=== PATIENT | female | born 1985 | race Caucasian/White ===

== ENCOUNTER → 2018-03-22 | Outpatient (CLI) | payer OTHER | LOC: MC.RAD 14:15 | DX: N63.20 Unspecified lump in the left breast, unspecified quadrant (principal) ==

== ENCOUNTER 2018-04-08 18:35 | Emergency (ER) | payer OTHER ==
[~2018-04-08] VITALS: Ht 172.7 cm; Wt 65.9 kg
[2018-04-08 18:38] VITALS: BP 127/64; TEMP 98.6
[2018-04-08] MEDS ORDERED: PREDNISONE10 MG PO (19:18)
[2018-04-08 19:21] VITALS: PULSE 99
== END 2018-04-08 20:14 | disposition home or self-care (01) ==
LOC: COL.ER 18:35
DX: R05 Cough (principal); F17.210 Nicotine dependence, cigarettes, uncomplicated; Z88.0 Allergy status to penicillin
CPT/HCPCS: J7512

== ENCOUNTER 2018-04-24 17:47 | Emergency (ER) | payer OTHER ==
[~2018-04-24 17:47] MED LIST: PREDNISONE10 MG PO
[2018-04-24 17:58] VITALS: TEMP 98.5
[2018-04-24 18:26] LABS: BASO % 0.3 % (0.0-2.0); EOS # 0.1 (0.0-0.7); GRAN # 1.7 (1.4-6.5); GRAN % 43.7 % (42.2-75.2); HEMOGLOBIN 11.5 g/dl (12.5-16.0); LYMPH # 1.7 (1.2-3.4); MEAN CELL VOLUME 83 fl (80.0-100.0); MEAN CORPUSCULAR HEMOGLOBIN 28 pg (27.0-31.0); MEAN CORPUSCULAR HGB CONC 34 g/dl (33.0-37.0); MEAN PLATELET VOLUME 9.7 fl (7.4-10.4); MONO # 0.4 (0.1-0.6); MONO % 10.7 % (1.7-9.3); PLATELET COUNT 220 K/mm3 (130-400); RED BLOOD COUNT 4.13 M/mm3 (4.10-5.30); REDCELL DISTRIBUTION WIDTH-CV 13.4 % (11.5-14.5)
[2018-04-24 18:27] LABS: HEMATOCRIT 34.3 % (37.0-47.0)
[2018-04-24] MEDS ORDERED: PHENERGAN 25 TA25 MG PO (19:03)
[2018-04-24 19:13] VITALS: BP 127/82; PULSE 83
== END 2018-04-24 19:15 | disposition home or self-care (01) ==
LOC: COL.ER 17:47
PROVIDERS: Emergency Medicine
DX: O26.899 Other specified pregnancy related conditions, unspecified trimester (principal); R10.2 Pelvic and perineal pain; O21.9 Vomiting of pregnancy, unspecified; Z88.0 Allergy status to penicillin; Z3A.00 Weeks of gestation of pregnancy not specified

== ENCOUNTER 2018-04-29 07:47 | Emergency (ER) | payer OTHER ==
[~2018-04-29] VITALS: Ht 172.7 cm; Wt 63.6 kg
[~2018-04-29 07:47] MED LIST changes: +PHENERGAN 25 TA25 MG PO
[2018-04-29 07:50] VITALS: BP 122/70; PULSE 100; TEMP 97.6
[2018-04-29 08:07] LABS: BASO % 0.3 % (0.0-2.0); EOS # 0.1 (0.0-0.7); EOS % 1.9 % (0-4.0); GRAN # 1.7 (1.4-6.5); HEMOGLOBIN 12.2 g/dl (12.5-16.0); LYMPH # 1.6 (1.2-3.4); LYMPH % 43.2 % (20.0-51.0); MEAN CELL VOLUME 84 fl (80.0-100.0); MEAN CORPUSCULAR HEMOGLOBIN 28 pg (27.0-31.0); MEAN CORPUSCULAR HGB CONC 33 g/dl (33.0-37.0); MEAN PLATELET VOLUME 9.7 fl (7.4-10.4); MONO # 0.4 (0.1-0.6); MONO % 10.1 % (1.7-9.3); PLATELET COUNT 212 K/mm3 (130-400); RED BLOOD COUNT 4.39 M/mm3 (4.10-5.30); REDCELL DISTRIBUTION WIDTH-CV 13.5 % (11.5-14.5)
[2018-04-29 08:12] LABS: COLLECTION METHOD CLEAN CATCH
[2018-04-29 08:19] LABS: MUCOUS Present /lpf; PH 5 (5-8); URINE APPEARANCE Hazy; URINE BACTERIA Rare /hpf; URINE BILIRUBIN Negative (NEGATIVE); URINE BLOOD Negative (NEGATIVE); URINE COLOR Yellow; URINE GLUCOSE Negative (NEGATIVE); URINE KETONE Negative (NEGATIVE); URINE LEUKOCYTE ESTERASE Negative (NEGATIVE); URINE NITRATE Negative (NEGATIVE); URINE PROTEIN(semi-quant) Negative (NEGATIVE); URINE RBC 0-2 /hpf; URINE UROBILINOGEN Negative (NEGATIVE)
== END 2018-04-29 09:10 | disposition home or self-care (01) ==
LOC: COL.ER 07:47
PROVIDERS: Emergency Medicine; Nurse Practitioner
DX: O20.0 Threatened abortion (principal); F17.210 Nicotine dependence, cigarettes, uncomplicated; Z3A.01 Less than 8 weeks gestation of pregnancy; Z88.0 Allergy status to penicillin; Z98.890 Other specified postprocedural states

== ENCOUNTER 2018-05-03 22:23 | Emergency (ER) | payer OTHER ==
[2018-05-04 00:26] LABS: BASO % 0.3 % (0.0-2.0); EOS # 0.1 (0.0-0.7); EOS % 1.1 % (0-4.0); GRAN # 3.8 (1.4-6.5); GRAN % 54.2 % (42.2-75.2); HEMATOCRIT 37.3 % (37.0-47.0); HEMOGLOBIN 12.4 g/dl (12.5-16.0); LYMPH # 2.5 (1.2-3.4); LYMPH % 35.9 % (20.0-51.0); MEAN CELL VOLUME 85 fl (80.0-100.0); MEAN CORPUSCULAR HEMOGLOBIN 28 pg (27.0-31.0); MEAN CORPUSCULAR HGB CONC 33 g/dl (33.0-37.0); MONO # 0.6 (0.1-0.6); MONO % 8.4 % (1.7-9.3); PLATELET COUNT 224 K/mm3 (130-400); RED BLOOD COUNT 4.38 M/mm3 (4.10-5.30); REDCELL DISTRIBUTION WIDTH-CV 13.7 % (11.5-14.5)
[2018-05-04 00:35] LABS: ALBUMIN 4.4 gm/dL (3.5-5.0); BILIRUBIN,TOTAL 0.3 mg/dL (0.0-1.0); CALCIUM 9.4 mg/dL (8.4-10.2); CREATININE, serum 0.65 mg/dL (0.52-1.25); POTASSIUM 3.7 mmol/L (3.4-5.0); TOTAL PROTEIN 7.8 gm/dL (6.4-8.2)
[2018-05-04 03:39] LABS: COLLECTION METHOD CLEAN CATCH
[2018-05-04 03:48] LABS: MUCOUS Present /lpf; PH 5 (5-8); SQUAMOUS EPITHELIAL 0-2 /hpf; URINE APPEARANCE Clear; URINE BACTERIA None Seen /hpf; URINE BILIRUBIN Negative (NEGATIVE); URINE BLOOD 3+ (NEGATIVE); URINE COLOR Yellow; URINE GLUCOSE Negative (NEGATIVE); URINE KETONE 2+ (NEGATIVE); URINE LEUKOCYTE ESTERASE Negative (NEGATIVE); URINE NITRATE Negative (NEGATIVE); URINE PROTEIN(semi-quant) Negative (NEGATIVE); URINE RBC 0-2 /hpf; URINE UROBILINOGEN Negative (NEGATIVE)
[2018-05-04 05:10] VITALS: BP 108/66; PULSE 65; TEMP 97.9
== END 2018-05-04 05:11 | disposition home or self-care (01) ==
LOC: COL.ER 22:23
PROVIDERS: Emergency Medicine
DX: O20.0 Threatened abortion (principal); O99.331 Smoking (tobacco) complicating pregnancy, first trimester; Z3A.01 Less than 8 weeks gestation of pregnancy; F17.210 Nicotine dependence, cigarettes, uncomplicated
CPT/HCPCS: J7030

== ENCOUNTER 2018-07-05 12:13 | Emergency (ER) | payer OTHER ==
[~2018-07-05] VITALS: Ht 172.7 cm; Wt 60.9 kg
[2018-07-05 12:19] VITALS: BP 106/60; PULSE 83; TEMP 97.7
== END 2018-07-05 14:42 | disposition left against medical advice (07) ==
LOC: COL.ER 12:13
DX: J32.9 Chronic sinusitis, unspecified (principal)

== ENCOUNTER 2018-07-05 23:33 | Emergency (ER) | payer OTHER ==
[~2018-07-05] VITALS: Ht 172.7 cm; Wt 61.4 kg
[2018-07-05 23:38] VITALS: BP 113/68; TEMP 97
[2018-07-06 00:25] VITALS: PULSE 87
== END 2018-07-06 00:25 | disposition home or self-care (01) ==
LOC: COL.ER 23:33
DX: O26.892 Other specified pregnancy related conditions, second trimester (principal); O99.512 Diseases of the respiratory system complicating pregnancy, second trimester; B34.9 Viral infection, unspecified; J32.9 Chronic sinusitis, unspecified; J06.9 Acute upper respiratory infection, unspecified; Z3A.15 15 weeks gestation of pregnancy

== ENCOUNTER 2018-07-08 20:29 | Emergency (ER) | payer OTHER ==
[~2018-07-08] VITALS: Ht 172.7 cm; Wt 59.1 kg
[2018-07-08 20:37] VITALS: BP 118/71; TEMP 98.4
[2018-07-08 21:37] VITALS: PULSE 80
== END 2018-07-08 21:38 | disposition home or self-care (01) ==
LOC: COL.ER 20:29
DX: O99.89 Other specified diseases and conditions complicating pregnancy, childbirth and the puerperium (principal); M25.531 Pain in right wrist; Z3A.15 15 weeks gestation of pregnancy

== ENCOUNTER 2018-08-08 20:54 | Emergency (ER) | payer OTHER ==
[~2018-08-08] VITALS: Ht 172.7 cm; Wt 62.7 kg
[2018-08-08 20:58] VITALS: BP 117/60; TEMP 98.5
[2018-08-08] MEDS ORDERED: ZOLOFT 25MG25 MG PO (21:10)
[2018-08-08 21:19] LABS: COLLECTION METHOD CLEAN CATCH
[2018-08-08 21:24] LABS: PH 8 (5-8); SQUAMOUS EPITHELIAL 0-2 /hpf; URINE APPEARANCE Clear; URINE BACTERIA None Seen /hpf; URINE BILIRUBIN Negative (NEGATIVE); URINE BLOOD Negative (NEGATIVE); URINE COLOR Colorless; URINE GLUCOSE Negative (NEGATIVE); URINE KETONE Negative (NEGATIVE); URINE LEUKOCYTE ESTERASE Negative (NEGATIVE); URINE NITRATE Negative (NEGATIVE); URINE PROTEIN(semi-quant) Negative (NEGATIVE); URINE RBC None Seen /hpf; URINE UROBILINOGEN Negative (NEGATIVE)
[2018-08-08 21:40] VITALS: PULSE 72
== END 2018-08-08 21:40 | disposition home or self-care (01) ==
LOC: COL.ER 20:54
PROVIDERS: Emergency Medicine
DX: O99.342 Other mental disorders complicating pregnancy, second trimester (principal); O26.892 Other specified pregnancy related conditions, second trimester; R10.2 Pelvic and perineal pain; F32.9 Major depressive disorder, single episode, unspecified; F41.9 Anxiety disorder, unspecified; Z3A.19 19 weeks gestation of pregnancy

== ENCOUNTER 2018-09-12 00:02 | Emergency (ER) | payer OTHER ==
[~2018-09-12] VITALS: Ht 172.7 cm; Wt 68.6 kg
[~2018-09-12 00:02] MED LIST changes: +ZOLOFT 25MG25 MG PO
[2018-09-12 00:04] VITALS: TEMP 97.6
[2018-09-12 00:22] LABS: COLLECTION METHOD CLEAN CATCH
[2018-09-12 00:29] LABS: PH 6 (5-8); SQUAMOUS EPITHELIAL 0-2 /hpf; URINE APPEARANCE Clear; URINE BACTERIA None Seen /hpf; URINE BILIRUBIN Negative (NEGATIVE); URINE BLOOD Negative (NEGATIVE); URINE COLOR Straw; URINE GLUCOSE Negative (NEGATIVE); URINE KETONE Negative (NEGATIVE); URINE LEUKOCYTE ESTERASE Negative (NEGATIVE); URINE NITRATE Negative (NEGATIVE); URINE PROTEIN(semi-quant) Negative (NEGATIVE); URINE RBC None Seen /hpf; URINE UROBILINOGEN Negative (NEGATIVE)
--- NOTE | 2018-09-12 00:40 | NUR ---
Pt in ED for reports of uncontrollable nausea for 2 days. Pt 24.4 wks with pt reports "normal care". Pt denies any leaking of fluid or vaginal bleeding at this time. Pt also denies contractions and reports normal movement. EFM and toco monitors applied. Initially, difficult to trace. Audible and palpable movement. See EFM monitoring for details. No contractions noted on toco monitor. Information and EFM strip given to ED provider. Encouraged follow up with OB provider sooner than regular scheduled appointment.
[2018-09-12 01:56] LABS: BASO % 0.2 % (0.0-2.0); EOS # 0.1 (0.0-0.7); EOS % 0.8 % (0-4.0); GRAN # 3.1 (1.4-6.5); GRAN % 52.1 % (42.2-75.2); LYMPH # 2.3 (1.2-3.4); LYMPH % 37.5 % (20.0-51.0); MEAN CELL VOLUME 91 fl (80.0-100.0); MEAN CORPUSCULAR HGB CONC 34 g/dl (33.0-37.0); MEAN PLATELET VOLUME 9.5 fl (7.4-10.4); MONO # 0.6 (0.1-0.6); MONO % 9.1 % (1.7-9.3); PLATELET COUNT 212 K/mm3 (130-400); RED BLOOD COUNT 3.11 M/mm3 (4.10-5.30); REDCELL DISTRIBUTION WIDTH-CV 12.3 % (11.5-14.5)
[2018-09-12 02:03] LABS: HEMATOCRIT 28.3 % (37.0-47.0); HEMOGLOBIN 9.7 g/dl (12.5-16.0); MEAN CORPUSCULAR HEMOGLOBIN 31 pg (27.0-31.0)
[2018-09-12 02:13] LABS: ALBUMIN 3.4 gm/dL (3.5-5.0); BILIRUBIN,TOTAL 0.1 mg/dL (0.0-1.0); CREATININE, serum 0.48 mg/dL (0.52-1.25); POTASSIUM 3.8 mmol/L (3.4-5.0); TOTAL PROTEIN 6.3 gm/dL (6.4-8.2)
[2018-09-12] MEDS ORDERED: PHENERGAN 25 TA25 MG PO (02:28)
[2018-09-12] MEDS ORDERED: FLAGYL500 MG PO (02:28)
[2018-09-12 02:39] VITALS: BP 114/68; PULSE 66
== END 2018-09-12 02:41 | disposition home or self-care (01) ==
LOC: COL.ER 00:02
PROVIDERS: Emergency Medicine
DX: O23.592 Infection of other part of genital tract in pregnancy, second trimester (principal); B96.89 Other specified bacterial agents as the cause of diseases classified elsewhere; O99.012 Anemia complicating pregnancy, second trimester; Z87.891 Personal history of nicotine dependence; Z3A.24 24 weeks gestation of pregnancy

== ENCOUNTER 2018-09-24 21:30 | Emergency (ER) | payer OTHER ==
[~2018-09-24] VITALS: Ht 172.7 cm; Wt 70.9 kg
[~2018-09-24 21:30] MED LIST changes: +FLAGYL500 MG PO
[2018-09-24 21:36] VITALS: BP 124/77; TEMP 97.8
--- NOTE | 2018-09-24 22:02 | NUR ---
Pt seen in the ED for complaints with ingrown toenail. Pt 26.2 wks. Due 12/29/18. Pt denies any leaking of fluid or vaginal bleeding at this time and reports normal movement. She reports occasional "abdominal cramping" when working or walking all day but "cramping" stops with rest and hydration. EFM and toco monitors placed. Audible movement. No ctx per toco or palpation. Encouraged rest, hydration and regular scheduled appt with OB. See FHR charting for details.
[2018-09-24] MEDS ORDERED: CEPHALEXIN500 M1 PO (22:29)
[2018-09-24 22:42] VITALS: PULSE 93
== END 2018-09-24 22:42 | disposition home or self-care (01) ==
LOC: COL.ER 21:30
DX: O99.712 Diseases of the skin and subcutaneous tissue complicating pregnancy, second trimester (principal); L03.031 Cellulitis of right toe; Z87.891 Personal history of nicotine dependence; Z88.0 Allergy status to penicillin; Z3A.26 26 weeks gestation of pregnancy

== ENCOUNTER 2018-09-24 23:29 | Emergency (ER) | payer OTHER ==
[~2018-09-24] VITALS: Ht 172.7 cm; Wt 70.9 kg
[~2018-09-24 23:29] MED LIST changes: +CEPHALEXIN500 M1 PO
[2018-09-24 23:34] VITALS: BP 116/66
[2018-09-25 00:08] VITALS: PULSE 86
== END 2018-09-25 00:14 | disposition home or self-care (01) ==
LOC: COL.ER 23:29
DX: L60.0 Ingrowing nail (principal)

== ENCOUNTER 2018-10-06 15:47 | Emergency (ER) | payer OTHER ==
[~2018-10-06] VITALS: Ht 172.7 cm; Wt 71.8 kg
[2018-10-06 15:56] VITALS: BP 110/63; PULSE 87; TEMP 97.5
--- NOTE | 2018-10-06 16:50 | NUR ---
Patient denies any problems related to . FHR 145bpm baseline and moderate variability noted.
== END 2018-10-06 17:35 | disposition home or self-care (01) ==
LOC: COL.ER 15:47
DX: O98.513 Other viral diseases complicating pregnancy, third trimester (principal); Z3A.28 28 weeks gestation of pregnancy; Z88.0 Allergy status to penicillin; Z88.1 Allergy status to other antibiotic agents

== ENCOUNTER 2018-10-09 14:20 | Emergency (ER) | payer OTHER ==
[~2018-10-09] VITALS: Ht 172.7 cm; Wt 71.8 kg
[2018-10-09 14:33] VITALS: TEMP 98.1
--- NOTE | 2018-10-09 19:45 | NUR ---
1930- OB patient seen in ED. EFM and TOCO on and tracing. Patient denies decreased movement, leaking of fluid, bleeding or spotting, or contractions. 1949- FHR reassurring. Updated ED RN.
[2018-10-09 20:30] VITALS: BP 126/75; PULSE 79
== END 2018-10-09 20:30 | disposition home or self-care (01) ==
LOC: COL.ER 14:20
DX: O26.892 Other specified pregnancy related conditions, second trimester (principal); O99.342 Other mental disorders complicating pregnancy, second trimester; R20.2 Paresthesia of skin; F41.9 Anxiety disorder, unspecified; F32.9 Major depressive disorder, single episode, unspecified; G43.909 Migraine, unspecified, not intractable, without status migrainosus; Z3A.28 28 weeks gestation of pregnancy
CPT/HCPCS: J1200; J7030

== ENCOUNTER 2018-10-18 22:29 | Outpatient (CLI) | payer OTHER ==
[~2018-10-18] VITALS: Ht 172.7 cm; Wt 71.8 kg
--- NOTE | 2018-10-18 22:45 | NUR ---
G1L0. 29-5. Ambulatory to LDR 5 with significant other. Clean gown on. Pt states she has had consistent abdominal cramping since 2030 tonight while she was at work. Pt reports going home but cramping did not go away. Pt denies vaginal bleeding, LOF or recent sexual intercourse. Pt states she had a BV infection but she was unable to finish her flagyl perscription due to the ER telling her to finish her keflex perscription first due to an ingrown toenail. Pt states she has not taken tylenol since earlier this morning at 0900. Reports good movement. SVE FT/50/-2. Plan of care explained and call light within reach. 2325: updated on pt's status. See physican notification. 2335: Plan of care explained to pt and questions answered. IV started and LR bolus infusing without difficulties. 0011: LR bolus completed and pt off monitors to changed 0025: Discharge instructions given to pt and signifcant other who verbalize their understanding. Pt ambulatory off unit and home with signifcant other.
[2018-10-18 22:55] VITALS: BP 118/70; PULSE 83; TEMP 97.4
[2018-10-18] MEDS ORDERED: PRENATAL MVI PO (22:57)
[2018-10-18] MEDS ORDERED: TYLENOL 325MG325 MG PO (22:58)
[2018-10-19 00:11] VITALS: BP 113/69; PULSE 68
== END 2018-10-19 00:25 | disposition home or self-care (01) ==
LOC: LDRO 22:29 → LDR 23:26 → LDRO 10-19 00:25
DX: O26.893 Other specified pregnancy related conditions, third trimester (principal); R25.2 Cramp and spasm; Z3A.29 29 weeks gestation of pregnancy
CPT/HCPCS: OP; J7120

== ENCOUNTER 2018-12-06 13:09 | Emergency (ER) | payer OTHER ==
[~2018-12-06 13:09] MED LIST changes: +PRENATAL MVI PO; +TYLENOL 325MG325 MG PO
[2018-12-06 13:17] VITALS: BP 120/78; TEMP 97.1
[2018-12-06 13:59] LABS: COLLECTION METHOD CLEAN CATCH
[2018-12-06 14:02] LABS: BASO % 0.4 % (0.0-2.0); EOS % 0.8 % (0-4.0); GRAN # 3.3 (1.4-6.5); GRAN % 62.6 % (42.2-75.2); LYMPH # 1.5 (1.2-3.4); LYMPH % 28.1 % (20.0-51.0); MEAN CELL VOLUME 83 fl (80.0-100.0); MEAN CORPUSCULAR HGB CONC 32 g/dl (33.0-37.0); MEAN PLATELET VOLUME 11.1 fl (7.4-10.4); MONO # 0.4 (0.1-0.6); MONO % 7.7 % (1.7-9.3); PLATELET COUNT 218 K/mm3 (130-400); RED BLOOD COUNT 3.54 M/mm3 (4.10-5.30); REDCELL DISTRIBUTION WIDTH-CV 13.2 % (11.5-14.5)
[2018-12-06 14:03] LABS: HEMATOCRIT 29.5 % (37.0-47.0); HEMOGLOBIN 9.4 g/dl (12.5-16.0); MEAN CORPUSCULAR HEMOGLOBIN 27 pg (27.0-31.0)
[2018-12-06 14:06] LABS: MUCOUS Present /lpf; PH 6 (5-8); URINE APPEARANCE Clear; URINE BACTERIA Rare /hpf; URINE BILIRUBIN Negative (NEGATIVE); URINE BLOOD Negative (NEGATIVE); URINE COLOR Yellow; URINE GLUCOSE Negative (NEGATIVE); URINE KETONE Negative (NEGATIVE); URINE LEUKOCYTE ESTERASE Negative (NEGATIVE); URINE NITRATE Negative (NEGATIVE); URINE PROTEIN(semi-quant) Negative (NEGATIVE); URINE RBC 0-2 /hpf; URINE UROBILINOGEN Negative (NEGATIVE)
[2018-12-06 14:12] LABS: ALANINE AMINOTRANSFERASE < 6 U/L (9-52); ALBUMIN 3.6 gm/dL (3.5-5.0); ALKALINE PHOSPHATASE 221 U/L (50-136); ANION GAP 9 mmol/L (7-16); AST,SGOT 27 U/L (15-37); BILIRUBIN,TOTAL 0.2 mg/dL (0.0-1.0); BLOOD UREA NITROGEN 9 mg/dL (7-17); CALCIUM 9.4 mg/dL (8.4-10.2); CARBON DIOXIDE 21 mmol/L (22-30); CHLORIDE 108 mmol/L (98-107); CREATININE, serum 0.64 (0.52-1.25); GLUCOSE 88 mg/dL (74-106); LIPASE 155 U/L (23-300); POTASSIUM 4.1 mmol/L (3.4-5.0); SODIUM 138 mmol/L (137-145)
[2018-12-06] MEDS ORDERED: PHENERGAN 25 TA25 MG PO (14:23)
[2018-12-06] MEDS ORDERED: MACROBID 1100 MG/CAP PO (14:25)
[2018-12-06 14:40] VITALS: PULSE 65
== END 2018-12-06 14:42 | disposition home or self-care (01) ==
LOC: COL.ER 13:09
PROVIDERS: Emergency Medicine
DX: O21.9 Vomiting of pregnancy, unspecified (principal); O26.893 Other specified pregnancy related conditions, third trimester; R82.71 Bacteriuria; Z3A.36 36 weeks gestation of pregnancy
CPT/HCPCS: J2405; J2550; J7030

== ENCOUNTER 2018-12-10 22:55 | Outpatient (CLI) | payer OTHER ==
[~2018-12-10] VITALS: Ht 172.7 cm; Wt 77.7 kg
[~2018-12-10 22:55] MED LIST changes: +MACROBID 1100 MG/CAP PO
--- NOTE | 2018-12-10 23:10 | NUR ---
Pt arrived on unit with complaints of contractions starting this evening. Pt reports some "pink spotting" while in the bathroom at work this evening. Pt denies any leaking of fluid and reports normal movement. EFM and toco monitors started. Vital signs WNL. SVE by this RN /2. Spoke with Dr. Galdamez. Reviewed pt's status with arrival, SVE and FHR tracing reviewed. Plan of care for labor assessment reviewed with pt.
[2018-12-10 23:17] VITALS: BP 128/77; PULSE 77; TEMP 97.9
--- NOTE | 2018-12-11 00:45 | NUR ---
SVE by this RN with no change. Orders for discharge home received. Discharge plan, precautions and follow up care discussed with pt and boyfriend at the bedside. Both verbalized an understanding, agree with the plan and state no questions or concerns at this time.
== END 2018-12-11 01:15 | disposition home or self-care (01) ==
LOC: LDRO 22:55
DX: O62.9 Abnormality of forces of labor, unspecified (principal); Z3A.37 37 weeks gestation of pregnancy

== ENCOUNTER 2018-12-11 19:27 | Outpatient (CLI) | payer OTHER ==
[~2018-12-11] VITALS: Ht 172.7 cm; Wt 77.3 kg
--- NOTE | 2018-12-11 19:35 | NUR ---
To unit via wheelchair for labor assessment. Oriented to room, monitor, plan of care. Pt reports contractions and a "blood clot out of my vagina" Pt reports "I was here last night for a labor check and I had some clots before I left.
--- NOTE | 2018-12-11 19:50 | NUR ---
SVE with brown 'old blood noted on glove', no red bleeding or loss of fluid.
[2018-12-11 19:54] VITALS: BP 117/78; PULSE 68; TEMP 98.8
[2018-12-11 21:00] VITALS: BP 126/77; PULSE 73
--- NOTE | 2018-12-11 21:00 | NUR ---
Pt reports contractions "the same". SVE with no changes noted. Reviewed findings, discussed [place] contractions vs early laber. Questions invited and answered.
== END 2018-12-11 21:05 | disposition home or self-care (01) ==
LOC: LDRO 19:27
DX: O62.9 Abnormality of forces of labor, unspecified (principal); O46.93 Antepartum hemorrhage, unspecified, third trimester; Z3A.37 37 weeks gestation of pregnancy

== ENCOUNTER 2018-12-15 17:22 | Emergency (ER) | payer OTHER ==
[~2018-12-15] VITALS: Ht 172.7 cm; Wt 77.3 kg
[2018-12-15 17:23] VITALS: TEMP 98
[2018-12-15 17:56] LABS: BASO % 0.3 % (0.0-2.0); EOS % 0.3 % (0-4.0); GRAN # 3.7 (1.4-6.5); GRAN % 63.6 % (42.2-75.2); LYMPH # 1.6 (1.2-3.4); LYMPH % 27.9 % (20.0-51.0); MEAN CELL VOLUME 83 fl (80.0-100.0); MEAN CORPUSCULAR HGB CONC 32 g/dl (33.0-37.0); MEAN PLATELET VOLUME 10.6 fl (7.4-10.4); MONO # 0.4 (0.1-0.6); MONO % 7.6 % (1.7-9.3); PLATELET COUNT 205 K/mm3 (130-400); RED BLOOD COUNT 3.47 M/mm3 (4.10-5.30); REDCELL DISTRIBUTION WIDTH-CV 13.5 % (11.5-14.5)
[2018-12-15 17:59] LABS: HEMATOCRIT 28.9 % (37.0-47.0); HEMOGLOBIN 9.2 g/dl (12.5-16.0); MEAN CORPUSCULAR HEMOGLOBIN 27 pg (27.0-31.0)
[2018-12-15 18:06] LABS: ALANINE AMINOTRANSFERASE < 6 U/L (9-52); ALBUMIN 3.5 gm/dL (3.5-5.0); ALKALINE PHOSPHATASE 217 U/L (50-136); ANION GAP 10 mmol/L (7-16); AST,SGOT 30 U/L (15-37); BILIRUBIN,TOTAL 0.3 mg/dL (0.0-1.0); BLOOD UREA NITROGEN 11 mg/dL (7-17); CARBON DIOXIDE 21 mmol/L (22-30); CHLORIDE 105 mmol/L (98-107); CREATININE, serum 0.76 (0.52-1.25); GLUCOSE 106 mg/dL (74-106); POTASSIUM 3.9 mmol/L (3.4-5.0); SODIUM 136 mmol/L (137-145); TOTAL PROTEIN 6.8 gm/dL (6.4-8.2)
[2018-12-15 18:30] LABS: TROPONIN-I < 0.012 ng/mL (0.000-0.035)
--- NOTE | 2018-12-15 18:45 | NUR ---
182- RN to beside in ED. EFM and TOCO on and tracing. Patient denies LOF, bleeding, or spotting. Patient denies contractions at this time. 1844- FHT accels noted. EFM and TOCO off.
[2018-12-15 19:03] LABS: COLLECTION METHOD CLEAN CATCH
[2018-12-15 19:04] VITALS: BP 128/85
[2018-12-15 19:24] LABS: MUCOUS Present /lpf; PH 5 (5-8); URINE APPEARANCE Hazy; URINE BACTERIA Rare /hpf; URINE BILIRUBIN Negative (NEGATIVE); URINE BLOOD Negative (NEGATIVE); URINE COLOR Yellow; URINE GLUCOSE Negative (NEGATIVE); URINE KETONE Negative (NEGATIVE); URINE LEUKOCYTE ESTERASE Negative (NEGATIVE); URINE NITRATE Negative (NEGATIVE); URINE PROTEIN(semi-quant) Negative (NEGATIVE); URINE RBC 0-2 /hpf; URINE UROBILINOGEN Negative (NEGATIVE)
[2018-12-15 20:23] VITALS: PULSE 88
== END 2018-12-15 20:18 | disposition home or self-care (01) ==
LOC: COL.ER 17:22
PROVIDERS: Emergency Medicine
DX: R00.2 Palpitations (principal)
CPT/HCPCS: J1200; J2405; J2765; J7030

== ENCOUNTER 2018-12-17 18:08 | Outpatient (CLI) | payer OTHER ==
[~2018-12-17] VITALS: Ht 172.7 cm; Wt 77.3 kg
--- NOTE | 2018-12-17 18:15 | NUR ---
HERE DUE TO POOR APPETITE, SAYS SHE HAS BEEN OVERHEATED SINCE AC IS BROKEN IN APT TODAY. LAST ATE AT 2300 LAST NITE P[employer] DOG. DROVE SELF HERE. EFM ON ASSESSMENT BEGUN. 1844 SPRITE AND CRACKERS GIVEN. 1899 SANDWICH BOX PROVIDED.
[2018-12-17 18:29] VITALS: BP 130/65; PULSE 70; TEMP 98.1
[2018-12-17 18:30] VITALS: BP 133/65; PULSE 65; TEMP 98
--- NOTE | 2018-12-17 18:39 | NUR ---
AIR CONDITIONER OUT AT APT, NO APPETITE, HAS NOT EATEN SINCE 2299 LAST NITE
--- NOTE | 2018-12-17 19:37 | NUR ---
OFF EFM TO AMBULATE . HAS EATEN ENTIRE SANDWICH APPLEAUSE CRACKERS 1/2 COOKIE, NO EMESIS. WHEN ASKED WHEN SHE LAST THREW UP SHE SAYS 2 DAYS AGO.DISCUSSED BEING OFF OF MONITOR TO USE BATHROOM AND SEE IF FOOD SETTLES WELL THEN MAY DISCHARGE PER DR TEE.
--- NOTE | 2018-12-17 20:05 | NUR ---
NAUSEA IMPROVED. PT DRESSED AND READY TO DIASCHARGE HOME WITH FOB. HOSPITAL MUG WITH ICE WTATER GIVEN, ENCOURAGED TO DRINK TOLEREATED
== END 2018-12-17 20:10 | disposition home or self-care (01) ==
LOC: LDRO 18:08
DX: O99.89 Other specified diseases and conditions complicating pregnancy, childbirth and the puerperium (principal); Z3A.37 37 weeks gestation of pregnancy; W92.XXXA Exposure to excessive heat of man-made origin, initial encounter

== ENCOUNTER 2018-12-21 01:03 | Outpatient (CLI) | payer OTHER ==
[~2018-12-21] VITALS: Ht 172.7 cm; Wt 77.3 kg
[2018-12-21 01:27] VITALS: BP 118/83; PULSE 69; TEMP 97.9
[2018-12-21 01:30] VITALS: BP 118/83; PULSE 69; TEMP 97.9
[2018-12-21] MEDS ORDERED: ZANTAC 150MG T150 MG PO (01:37)
[2018-12-21] MEDS ORDERED: MACROBID 1100 MG/CAP PO (01:37)
--- NOTE | 2018-12-21 02:30 | NUR ---
SVE unchanged from previous exam. Pt reports having occasional strong contractions but nothing regular.
--- NOTE | 2018-12-21 03:00 | NUR ---
Pt discharged home at this time. Discharge intructions and return precautions reviewed with patient. Pt verbalized understanding. Pt seen ambulating off unit with spouse.
== END 2018-12-21 03:00 | disposition home or self-care (01) ==
LOC: LDRO 01:03
DX: O62.9 Abnormality of forces of labor, unspecified (principal); Z3A.38 38 weeks gestation of pregnancy

== ENCOUNTER 2018-12-23 23:25 | Outpatient (CLI) | payer OTHER ==
[~2018-12-23] VITALS: Ht 172.7 cm; Wt 64.5 kg
[~2018-12-23 23:25] MED LIST changes: +ZANTAC 150MG T150 MG PO
--- NOTE | 2018-12-23 23:30 | NUR ---
2335- Pt arrived on unit with reports of leaking fluid, spotting and occasional contractions. Pt also reports normal movement. EFM and toco monitors placed. Vital signs WNL. SVE by this RN . Amnitest negative. Information reviewed with Dr. Crenshaw. Orders received. 2345- Dr. Crenshaw at the bedside. SVE . Intact with some bloody show on exam. Plan of care reviewed with pt. 0005- Order for discharge home received.
[2018-12-23 23:53] VITALS: BP 138/91; PULSE 69; TEMP 98.2
[2018-12-24] MEDS ORDERED: TYLENOL 325MG325 MG PO
[2018-12-24 00:10] VITALS: BP 126/82; PULSE 78
--- NOTE | 2018-12-24 00:10 | NUR ---
Discharge information with precautions and instructions reviewed with pt and boyfriend at the bedside. Both verbalized an understanding, agree with the plan and state no questions or concerns at this time.
[2018-12-24] MEDS ORDERED: ZITHROMAX 250M250 MG PO (19:42)
== END 2018-12-24 00:10 | disposition home or self-care (01) ==
LOC: LDRO 23:25
DX: Z34.03 Encounter for supervision of normal first pregnancy, third trimester (principal); Z3A.39 39 weeks gestation of pregnancy

== ENCOUNTER 2018-12-24 19:08 | Emergency (ER) | payer OTHER ==
[~2018-12-24] VITALS: Ht 172.7 cm; Wt 77.3 kg
[2018-12-24 19:17] VITALS: BP 123/80; TEMP 97.1
[2018-12-24] MEDS ORDERED: ZITHROMAX 250M250 MG PO (19:42)
--- NOTE | 2018-12-24 19:45 | NUR ---
Pt seen in the ED for respiratory concerns 39.[address] Crenshaw. Pt denies any leaking of fluid, vaginal bleeding and/or contractions. Pt also reports normal movement. EFM and toco monitors placed. See monitor record for details. No contractions per toco, pt's report or palpation. Encouraged rest, keeping scheduled appointment with Dr. Crenshaw and precautions of when to return were reviewed.
[2018-12-24 21:05] VITALS: PULSE 75
== END 2018-12-24 21:05 | disposition home or self-care (01) ==
LOC: COL.ER 19:08
DX: O99.513 Diseases of the respiratory system complicating pregnancy, third trimester (principal); J20.9 Acute bronchitis, unspecified; Z3A.39 39 weeks gestation of pregnancy

== ENCOUNTER 2018-12-28 09:23 | Outpatient (CLI) | payer OTHER ==
[~2018-12-28] VITALS: Ht 172.7 cm; Wt 77.3 kg
[~2018-12-28 09:23] MED LIST changes: +ZITHROMAX 250M250 MG PO
--- NOTE | 2018-12-28 09:25 | NUR ---
Pt here from ER with c/o contractions every 5 minutes, vaginal spotting and leaking of fluid. Pt to EF, explained. SVE: amniotrace negative, /-2 and bloody show noted. Assessment complete, G1 and 39.6 weeks gestation. FHR reactive, inital bp 137/87. Pt states baby is active. Pt taking a Zpac for bronchitis, last dose is tonight. Dr Crenshaw called and updated. Will monitor for 1 hour and recheck.
[2018-12-28 09:34] VITALS: BP 137/87; PULSE 65; TEMP 97.4
[2018-12-28 10:05] VITALS: BP 137/88; PULSE 72
--- NOTE | 2018-12-28 10:55 | NUR ---
SVE: no cervical change made and bloody show noted on exam glove. This nurse at bedside, contractions palapted every 7-10 minutes and moderate. 1115:Dr Crenshaw called and updated. Orders received to dc home. Pt to return if contractions every 3-5 minutes. FHR reactive, physician montiored EFM from home. 1125:DC instructions given, pt to return if any vaginal bleeding, leaking of fluid, decreased movement or contractions that get stronger and closer together. Pt verbalizes understanding. Pt encouraged to go eat lunch and walk. 1130:Pt to personal vehicle.
[2018-12-28 11:05] VITALS: BP 124/88; PULSE 69
== END 2018-12-28 11:30 | disposition home or self-care (01) ==
LOC: LDRO 09:23 → LDR 11:16 → LDRO 11:30 → LDR 11:30
DX: O62.9 Abnormality of forces of labor, unspecified (principal); O26.853 Spotting complicating pregnancy, third trimester; Z3A.39 39 weeks gestation of pregnancy
CPT/HCPCS: OP

== ENCOUNTER 2018-12-28 16:19 | Outpatient (CLI) | payer OTHER ==
[~2018-12-28] VITALS: Ht 172.7 cm; Wt 64.5 kg
--- NOTE | 2018-12-28 16:25 | NUR ---
Pt arrives on unit ambulatory with FOB for ctx. Changed into clean gown. EFM and toco applied. VSS. SVE per L. Luis Armando, RN unchanged from this morning/ /-2. Mild bloody show noted. Pt denies LOF. Reports good movement. Admission assessment completed. Dr. Crenshaw notified see physician notification. 1700-Reactive FHR strip obtained. Pt taken off monitors. Discharge instructions given. No questions or concerns at this time. Leaves unit ambulatory with spouse.
[2018-12-28 16:50] VITALS: BP 127/86; PULSE 67
== END 2018-12-28 17:00 | disposition home or self-care (01) ==
LOC: LDRO 16:19
DX: O62.9 Abnormality of forces of labor, unspecified (principal); Z3A.39 39 weeks gestation of pregnancy

== ENCOUNTER 2018-12-29 10:58 | Inpatient (IN) | payer OTHER ==
[~2018-12-29] VITALS: Ht 172.7 cm; Wt 78.2 kg
[2018-12-29] VITALS (30 sets, daily range): BP systolic 113–163; BP diastolic 70–92; PULSE 57–84; TEMP 97.2–98.7
--- NOTE | 2018-12-29 11:05 | NUR ---
Patient to unit accompanied by significant other with complaints of contractions and bloody show. Patient breathing through contraction as she stands. G1L0, 40 weeks gestation. patient states baby is active, denies any leaking of fluid. Problem list reviewed with patient. SVE /1, bulgy bag of gonsalez noted on exam. Contractions palpate firm. Dr. Herrera called for orders. assessment completed. 1145: IV started in left wrist and labs collected from IV site. LR infusing without difficulty. Consents signed. Patient denies need for epidural at this time. Resting in bed, call light at bedside.
[2018-12-29 12:00] LABS: BASO % 0.2 % (0.0-2.0); EOS % 0.2 % (0-4.0); GRAN # 7.1 (1.4-6.5); GRAN % 73.5 % (42.2-75.2); HEMOGLOBIN 10.4 g/dl (12.5-16.0); LYMPH # 1.9 (1.2-3.4); LYMPH % 19.5 % (20.0-51.0); MEAN CELL VOLUME 81 fl (80.0-100.0); MEAN CORPUSCULAR HEMOGLOBIN 26 pg (27.0-31.0); MEAN CORPUSCULAR HGB CONC 32 g/dl (33.0-37.0); MEAN PLATELET VOLUME 11.1 fl (7.4-10.4); MONO # 0.6 (0.1-0.6); MONO % 6.4 % (1.7-9.3); PLATELET COUNT 209 K/mm3 (130-400); RED BLOOD COUNT 4.02 M/mm3 (4.10-5.30); REDCELL DISTRIBUTION WIDTH-CV 14.6 % (11.5-14.5)
[2018-12-29 12:02] LABS: HEMATOCRIT 32.5 % (37.0-47.0)
--- NOTE | 2018-12-29 12:32 | NUR ---
Report to Jarret Garcia RN to assume care of patient at this time.
--- NOTE | 2018-12-29 13:25 | NUR ---
Dr. Herrera at bedside. SVE /-1 with AROM - small amount of clear fluid noted. Patient requesting epidural. IVF bolus started. LANDSCAPE CONTRACTOR notified.
--- NOTE | 2018-12-29 13:44 | NUR ---
1335 SHIKHA Waite to room to place epidural. Patient assisted to the edge of the bed for procedure. FHR difficult to monitor in this position and intermittenly traces maternal HR. 1344 Single shot administered by SHIKHA Waite. See anesthesia record for details. 1347 Test dose administered by Conchis Smalls CRNA. See anesthesia record for details. 1352 Patient wedged to left side.
--- NOTE | 2018-12-29 15:00 | NUR ---
SVE with little change. Patient turned to right side. Plan of care reviewed.
--- NOTE | 2018-12-29 16:30 | NUR ---
1600 SVE with no change. CTX irregular at 3-[address] Herrera called and updated. Orders to start pitocin per protocol received. 1630 Pitocin started at 2mu per orders and protocol.
--- NOTE | 2018-12-29 18:00 | NUR ---
SVE - complete/+2. Plan of care reviewed. Roles called and updated.
--- NOTE | 2018-12-29 18:10 | NUR ---
Patient prepped for pushing, when legs held back infants head is visible. Dr. Herrera called to be present for pushing.
--- NOTE | 2018-12-29 18:31 | NUR ---
spont vag del per dr roles with 1 push. baby to mothers abdomen for cord cutting per mothers request
--- NOTE | 2018-12-29 18:50 | NUR ---
182 ROLES HERE.SVE. BED APART FOR DELIVERY. FOB AND HIS MOM HERE 183 FEMALE TO MOTHERS ABDOMEN 1850 REPAIR OF 2ND DEGREE. VISITS ON PHONE. EPID PUMP OFF PER Brian MCCLELLAND
[2018-12-30 00:15] VITALS: BP 135/84; PULSE 67; TEMP 97.9
[2018-12-30 07:59] VITALS: BP 126/78; PULSE 72; TEMP 97.7
--- NOTE | 2018-12-30 09:39 | NUR ---
Initial visit; Parents thanked Environmental Programs Specialist for offering congratulations and God's blessings for the of their daughter. Environmental Programs Specialist thanked them for choosing [facility].
[2018-12-30 16:00] VITALS: BP 126/74; PULSE 72; TEMP 98.3
[2018-12-30 19:40] VITALS: BP 132/67; PULSE 62; TEMP 98.1; TEMP 98.4
[2018-12-31 07:46] VITALS: BP 147/84; PULSE 72; TEMP 97.6
[2018-12-31] MEDS ORDERED: MOTRIN 800800 MG/TAB PO (11:57)
[2019-01-01] MEDS ORDERED: BACTRIM DS 8001 TAB PO (04:13)
== END 2018-12-31 12:52 | disposition home or self-care (01) | DRG 807 ==
LOC: LDRO 10:58 → LDR 10:59 → OB 11:19 → LDRO 11:19 → LDR 11:19 → OB 21:04
PROVIDERS: Obstetrics & Gynecology; ADMIT Obstetrics & Gynecology
PROC: 10E0XZZ Delivery of Products of Conception, External Approach (ICD-10-PCS; principal; 2018-12-29)
PROC: 0KQM0ZZ Repair Perineum Muscle, Open Approach (ICD-10-PCS; 2018-12-29)
DX: O99.284 Endocrine, nutritional and metabolic diseases complicating childbirth (principal); Z37.0 Single live birth; E55.9 Vitamin D deficiency, unspecified; O99.344 Other mental disorders complicating childbirth; F32.9 Major depressive disorder, single episode, unspecified; F41.9 Anxiety disorder, unspecified; O70.1 Second degree perineal laceration during delivery; O99.02 Anemia complicating childbirth; D64.9 Anemia, unspecified; Z3A.40 40 weeks gestation of pregnancy
CPT/HCPCS: J2590; J2795; J7120

== ENCOUNTER 2019-01-01 02:19 | Emergency (ER) | payer OTHER ==
[~2019-01-01] VITALS: Ht 172.7 cm; Wt 73.0 kg
[~2019-01-01 02:19] MED LIST changes: +MOTRIN 800800 MG/TAB PO
[2019-01-01 02:22] VITALS: TEMP 98.5
[2019-01-01 03:03] LABS: BASO % 0.1 % (0.0-2.0); EOS # 0.2 (0.0-0.7); EOS % 2.1 % (0-4.0); GRAN # 4.4 (1.4-6.5); GRAN % 60.9 % (42.2-75.2); LYMPH # 2.2 (1.2-3.4); LYMPH % 30.7 % (20.0-51.0); MEAN CELL VOLUME 84 fl (80.0-100.0); MEAN CORPUSCULAR HGB CONC 31 g/dl (33.0-37.0); MEAN PLATELET VOLUME 9.8 fl (7.4-10.4); MONO # 0.4 (0.1-0.6); MONO % 5.9 % (1.7-9.3); PLATELET COUNT 219 K/mm3 (130-400); RED BLOOD COUNT 3.02 M/mm3 (4.10-5.30)
[2019-01-01 03:06] LABS: HEMATOCRIT 25.4 % (37.0-47.0); HEMOGLOBIN 7.9 g/dl (12.5-16.0); MEAN CORPUSCULAR HEMOGLOBIN 26 pg (27.0-31.0)
[2019-01-01 03:13] LABS: ALANINE AMINOTRANSFERASE < 6 U/L (9-52); ALBUMIN 3.3 gm/dL (3.5-5.0); ALKALINE PHOSPHATASE 163 U/L (50-136); ANION GAP 10 mmol/L (7-16); AST,SGOT 30 U/L (15-37); BILIRUBIN,TOTAL 0.1 mg/dL (0.0-1.0); BLOOD UREA NITROGEN 11 mg/dL (7-17); CALCIUM 9.2 mg/dL (8.4-10.2); CARBON DIOXIDE 22 mmol/L (22-30); CHLORIDE 109 mmol/L (98-107); CREATININE, serum 0.74 (0.52-1.25); GLUCOSE 90 mg/dL (74-106); SODIUM 141 mmol/L (137-145); TOTAL PROTEIN 6.6 gm/dL (6.4-8.2)
[2019-01-01 03:16] LABS: COLLECTION METHOD CLEAN CATCH
[2019-01-01 03:27] LABS: MUCOUS Present /lpf; PH 5 (5-8); URINE APPEARANCE Hazy; URINE BACTERIA None Seen /hpf; URINE BILIRUBIN Negative (NEGATIVE); URINE BLOOD 3+ (NEGATIVE); URINE COLOR Yellow; URINE GLUCOSE Negative (NEGATIVE); URINE KETONE Negative (NEGATIVE); URINE LEUKOCYTE ESTERASE 3+ (NEGATIVE); URINE NITRATE Negative (NEGATIVE); URINE PROTEIN(semi-quant) 2+ (NEGATIVE); URINE RBC >50 /hpf; URINE UROBILINOGEN Negative (NEGATIVE)
[2019-01-01] MEDS ORDERED: BACTRIM DS 8001 TAB PO (04:13)
[2019-01-01 04:29] VITALS: BP 143/84; PULSE 71
== END 2019-01-01 04:29 | disposition home or self-care (01) ==
LOC: COL.ER 02:19
PROVIDERS: Physician Assistant
DX: N39.0 Urinary tract infection, site not specified (principal); D64.9 Anemia, unspecified